=== PATIENT | female | born 1965 | race Caucasian/White ===

== ENCOUNTER 2019-12-17 00:42 | Emergency (ER) | payer SELFPAY ==
[~2019-12-17] VITALS: Ht 157.5 cm; Wt 103.9 kg
[~2019-12-17 00:42] MED LIST: NEURONTIN300 MG; SYNTHROID100 MCG
[2019-12-17 01:14] LABS: BASOPHILS % 0.4 % (0.0-1.0); EOSINOPHILS # (AUTO) 0.1 (0.0-0.4); EOSINOPHILS % 0.8 % (0.0-6.0); HEMATOCRIT 41.5 % (34.2-44.1); HEMOGLOBIN 13.8 g/dL (12.0-16.0); LYMPHOCYTES # (AUTO) 1.3 (1.0-3.2); LYMPHOCYTES % 13.8 % (18.0-39.1); MEAN CORPUSCULAR HEMOGLOBIN 28.7 pg (28-32); MEAN CORPUSCULAR HGB CONC 33.3 g/dL (31-35); MEAN CORPUSCULAR VOLUME 86.3 fL (81-99); MONOCYTES # (AUTO) 0.6 (0.2-0.8); MONOCYTES % 6.1 % (4.4-11.3); NEUTROPHILS # (AUTO) 7.5 (2.1-6.9); NEUTROPHILS % 78.6 % (38.7-80.0); PLATELET COUNT 212 x10e3/uL (140-360); RED BLOOD COUNT 4.81 x10e6/uL (3.6-5.1); RED CELL DISTRIBUTION WIDTH 12.5 % (11.7-14.4)
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
[2019-12-17 01:21] LABS: BILIRUBIN,URINE NEGATIVE (NEGATIVE); CLARITY,URINE CLEAR (CLEAR); COLOR,URINE YELLOW (YELLOW); KETONES,URINE NEGATIVE (NEGATIVE); LEUKOCYTE ESTERASE ,URINE NEGATIVE (NEGATIVE); NITRITE,URINE NEGATIVE (NEGATIVE); PROTEIN,URINE DIPSTICK 1+ (NEGATIVE); RBC,URINE 0-5 /HPF (0-5); URINE UROBILINOGEN 0.2 mg/dL (0.2 - 1); WBC,URINE (MAN) 0-5 /HPF (0-5)
[2019-12-17 01:32] LABS: ANION GAP 12.1 mmol/L (8-16); CALCIUM 9.2 mg/dL (8.4-10.2); POTASSIUM 4.1 mmol/L (3.5-5.1)
[2019-12-17 01:46] LABS: BACTERIA,URINE MANY /HPF; EPITHELIAL CELLS,URINE MODERATE /LPF; MUCUS,URINE MANY (RARE)
[2019-12-17] MEDS ORDERED: SODIUM CHLORIDE 0.9% 50ML 50 ML ONE (01:54)
[2019-12-17] MEDS ORDERED: IOPAMIDOL 370 MG/ML 200 ML INFUS..BTL INJ ONE (01:54)
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
== END 2019-12-17 03:12 | disposition home or self-care (01) ==
LOC: ER 01:06
DX: S30.1XXA Contusion of abdominal wall, initial encounter (principal); S70.12XA Contusion of left thigh, initial encounter; S70.11XA Contusion of right thigh, initial encounter; M54.2 Cervicalgia; V43.52XA Car driver injured in collision with other type car in traffic accident, initial encounter; Y92.488 Other paved roadways as the place of occurrence of the external cause
CPT/HCPCS: 36415; 70450; 72125; 74177; 80048; 81001; 85025; 99284; Q9967